=== PATIENT | female | born 1980 | race Caucasian/White ===

== ENCOUNTER 2017-12-24 05:41 | Day surgery (SDC) | payer OTHER | END 2017-12-24 09:20 | disposition home or self-care (01) | LOC: AMB-ENDOS 05:41 | DX: K20.8 Other esophagitis (principal); K44.9 Diaphragmatic hernia without obstruction or gangrene; R10.13 Epigastric pain ==

== ENCOUNTER 2020-05-16 05:50 | Day surgery (SDC) | payer OTHER ==
[2020-05-16] MEDS ORDERED: ULTRACET PO (11:10)
[2020-05-16] MEDS ORDERED: SURFAK240 M1 PO (11:10)
[2020-05-16] MEDS ORDERED: POLY119PG PO (11:10)
[2020-05-16] MEDS ORDERED: PEPCID AC20 MG PO (11:11)
== END 2020-05-16 16:40 | disposition home or self-care (01) ==
LOC: CIR.AMB 05:50
PROVIDERS: ATTEND Surgery
DX: K80.10 Calculus of gallbladder with chronic cholecystitis without obstruction (principal); K42.9 Umbilical hernia without obstruction or gangrene; K43.2 Incisional hernia without obstruction or gangrene